=== PATIENT | female | born 1960 | race African-American/Black ===

== ENCOUNTER 2021-07-23 12:14 | Inpatient (IN) | payer OTHER ==
[2021-07-23 16:23] VITALS: BMI 37.4
[2021-07-23] MEDS ORDERED: ACETAMINOPHEN 325 MG TABLET (FP) PO PRN (23:30)
[2021-07-23] MEDS ORDERED: P-EPHED 60MG/TRIPROLIDI 2.5MG TABLET PO PRN (23:30)
[2021-07-23] MEDS ORDERED: guaiFENesin 200 MG/10 ML 10 ML UNIT-DOSE CUPS PO PRN (23:30)
[2021-07-23] MEDS ORDERED: MAG HYDROX/AL HYDROX/SIMETH 30 ML UNIT-DOSE CUP PO PRN (23:30)
[2021-07-23] MEDS ORDERED: LOPERAMIDE HCL 2 MG CAPSULE PO PRN (23:30)
[2021-07-23] MEDS ORDERED: MAGNESIUM CITRATE 300 ML BOTTLE PO PRN (23:30)
[2021-07-23] MEDS ORDERED: MELATONIN 5 MG TABLETS PO PRN (23:30)
[2021-07-23] MEDS ORDERED: MAGNESIUM HYDROX 2400MG/30ML ORAL SUSPENSION 30 ML CUP PO PRN (23:30)
[2021-07-23] MEDS ORDERED: cloNIDine HCL 0.1 MG TABLET PO ONE (23:32)
[2021-07-24] MEDS ORDERED: TUBERCULIN PPD 5 TU/0.1ML VIAL ID ONE (03:02)
[2021-07-24 08:41] LABS: CALCIUM 8.7 mg/dL (8.5-10.1)
[2021-07-24 08:42] LABS: BLOOD UREA NITROGEN 20.6 mg/dL (7-18)
[2021-07-24 08:44] LABS: CREATININE 1.4 mg/dL (0.55-1.3)
[2021-07-24 08:46] LABS: BILIRUBIN,TOTAL 0.2 mg/dL (0.2-1); TOT PROT 6.4 g/dl (6.4-8.2)
[2021-07-24 09:11] LABS: HEMATOCRIT 33.6 % (32.4-45.2); HEMOGLOBIN 11.3 GM/dL (10.7-15.3); MCH 28.7 pg (25.7-33.7); MCHC 33.7 g/dl (32.0-36.0); MEAN CELL VOLUME 85.3 fl (80-96); MEAN PLT VOLUME 8.9 fl (7.5-11.1); PLATELET COUNT 176 10^3/uL (134-434); RBC 3.94 M/mm3 (3.60-5.2); RDW 15.3 % (11.6-15.6); WHITE BLOOD COUNT 9.2 K/mm3 (4.0-10.0)
[2021-07-24 10:27] LABS: EPI CELLS 7 /uL (0-25.1); HYALINE CASTS 1 /uL (0-3.1); PH,URINE 6.5 (5.0-8.0); URINE APPEARANCE CLEAR; URINE BACTERIA 663 /uL (0-1359); URINE BILIRUBIN NEGATIVE (NEGATIVE); URINE COLOR YELLOW; URINE GLUCOSE (UA) NEGATIVE (NEGATIVE); URINE KETONE NEGATIVE (NEGATIVE); URINE LEUK ESTERASE 1+ (NEGATIVE); URINE NITRITE NEGATIVE (NEGATIVE); URINE PROTEIN 1+ (NEGATIVE); URINE RBC 72 /uL (0-23.9); URINE WBC 123 /uL (0-25.8)
[2021-07-24] MEDS: LISINOPRIL 20 MG TABLET PO SCH (10:45)
[2021-07-24] MEDS: ASPIRIN COATED 81 MG TABLET.EC PO SCH (10:45)
[2021-07-24] MEDS: PRENATAL VITAMINS W/ FOLIC ACID TABLET (FP) PO SCH (10:45)
[2021-07-24] MEDS: NIFEdipine E.R. 30 MG TABLET PO SCH (10:50)
[2021-07-24] MEDS ORDERED: ATORVASTATIN CA 40 MG TABLET (FP) ONE (21:47)
[2021-07-24] MEDS: ATORVASTATIN CA 80 MG TABLET (FP) PO SCH (21:48)
[2021-07-24] MEDS: THIAMINE HCL 100 MG TABLET (FP) PO SCH (21:48)
[2021-07-25] MEDS ORDERED: risperiDONE 1 MG TABLET PO SCH (10:00)
[2021-07-25] MEDS: NIFEdipine E.R. 30 MG TABLET PO SCH (10:28)
[2021-07-25] MEDS: ASPIRIN COATED 81 MG TABLET.EC PO SCH (10:28)
[2021-07-25] MEDS: LISINOPRIL 20 MG TABLET PO SCH (10:28)
[2021-07-25] MEDS: PRENATAL VITAMINS W/ FOLIC ACID TABLET (FP) PO SCH (10:28)
[2021-07-25] MEDS: DULoxetine HCL 30 MG CAPSULE.DR PO SCH (10:28)
[2021-07-25 12:04] LABS: HIV INTERPRETATION NEGATIVE (NEGATIVE)
[2021-07-25] MEDS ORDERED: ATORVASTATIN CA 40 MG TABLET (FP) ONE (19:25)
[2021-07-25] MEDS: ATORVASTATIN CA 80 MG TABLET (FP) PO SCH (21:11)
[2021-07-25] MEDS: THIAMINE HCL 100 MG TABLET (FP) PO SCH (21:11)
[2021-07-25] MEDS: MELATONIN 5 MG TABLETS PO PRN (21:11)
[2021-07-25] MEDS: risperiDONE 1 MG TABLET PO SCH (21:13)
[2021-07-26] MEDS ORDERED: hydrOXYzine PAMOATE 25 MG CAPSULE (FP) PO ONE (03:03)
[2021-07-26] MEDS: NIFEdipine E.R. 30 MG TABLET PO SCH ×2 (06:40→10:32)
[2021-07-26] MEDS: DULoxetine HCL 30 MG CAPSULE.DR PO SCH (10:30)
[2021-07-26] MEDS: PRENATAL VITAMINS W/ FOLIC ACID TABLET (FP) PO SCH (10:30)
[2021-07-26] MEDS: ASPIRIN COATED 81 MG TABLET.EC PO SCH (10:30)
[2021-07-26] MEDS: LISINOPRIL 20 MG TABLET PO SCH (10:32)
[2021-07-26] MEDS ORDERED: ATORVASTATIN CA 40 MG TABLET (FP) ONE (19:12)
[2021-07-26] MEDS: risperiDONE 1 MG TABLET PO SCH (21:14)
[2021-07-26] MEDS: ATORVASTATIN CA 80 MG TABLET (FP) PO SCH (21:14)
[2021-07-26] MEDS: THIAMINE HCL 100 MG TABLET (FP) PO SCH (21:14)
[2021-07-26] MEDS: MELATONIN 5 MG TABLETS PO PRN (22:14)
[2021-07-27] MEDS: PRENATAL VITAMINS W/ FOLIC ACID TABLET (FP) PO SCH (10:08)
[2021-07-27] MEDS: LISINOPRIL 20 MG TABLET PO SCH (10:09)
[2021-07-27] MEDS: DULoxetine HCL 30 MG CAPSULE.DR PO SCH (10:09)
[2021-07-27] MEDS: ASPIRIN COATED 81 MG TABLET.EC PO SCH (10:09)
[2021-07-27] MEDS: NIFEdipine E.R. 30 MG TABLET PO SCH (10:10)
[2021-07-27] MEDS ORDERED: ATORVASTATIN CA 40 MG TABLET (FP) ONE (19:15)
[2021-07-27] MEDS: risperiDONE 1 MG TABLET PO SCH (21:12)
[2021-07-27] MEDS: THIAMINE HCL 100 MG TABLET (FP) PO SCH (21:12)
[2021-07-27] MEDS: ATORVASTATIN CA 80 MG TABLET (FP) PO SCH (21:12)
[2021-07-27] MEDS: SUVOREXANT 10 MG TABLET PO PRN (21:14)
[2021-07-28] MEDS: LISINOPRIL 20 MG TABLET PO SCH (10:31)
[2021-07-28] MEDS: ASPIRIN COATED 81 MG TABLET.EC PO SCH (10:31)
[2021-07-28] MEDS: NIFEdipine E.R. 30 MG TABLET PO SCH (10:31)
[2021-07-28] MEDS: PRENATAL VITAMINS W/ FOLIC ACID TABLET (FP) PO SCH (10:31)
[2021-07-28] MEDS: DULoxetine HCL 30 MG CAPSULE.DR PO SCH (10:31)
[2021-07-28] MEDS ORDERED: ATORVASTATIN CA 40 MG TABLET (FP) ONE (19:56)
[2021-07-28] MEDS: THIAMINE HCL 100 MG TABLET (FP) PO SCH (21:13)
[2021-07-28] MEDS: SUVOREXANT 10 MG TABLET PO PRN (21:13)
[2021-07-28] MEDS: risperiDONE 1 MG TABLET PO SCH (21:13)
[2021-07-28] MEDS: ATORVASTATIN CA 80 MG TABLET (FP) PO SCH (21:13)
[2021-07-29] MEDS: PRENATAL VITAMINS W/ FOLIC ACID TABLET (FP) PO SCH (10:43)
[2021-07-29] MEDS: NIFEdipine E.R. 30 MG TABLET PO SCH (10:44)
[2021-07-29] MEDS: DULoxetine HCL 30 MG CAPSULE.DR PO SCH (10:46)
[2021-07-29] MEDS: LISINOPRIL 20 MG TABLET PO SCH (10:46)
[2021-07-29] MEDS: ASPIRIN COATED 81 MG TABLET.EC PO SCH (10:46)
[2021-07-29] MEDS ORDERED: ATORVASTATIN CA 40 MG TABLET (FP) ONE (20:36)
[2021-07-29] MEDS: THIAMINE HCL 100 MG TABLET (FP) PO SCH (21:23)
[2021-07-29] MEDS: ATORVASTATIN CA 80 MG TABLET (FP) PO SCH (21:23)
[2021-07-29] MEDS: risperiDONE 1 MG TABLET PO SCH (21:23)
[2021-07-29] MEDS: SUVOREXANT 10 MG TABLET PO PRN (21:26)
[2021-07-30] MEDS: DULoxetine HCL 30 MG CAPSULE.DR PO SCH (10:30)
[2021-07-30] MEDS: PRENATAL VITAMINS W/ FOLIC ACID TABLET (FP) PO SCH (10:30)
[2021-07-30] MEDS: NIFEdipine E.R. 30 MG TABLET PO SCH (10:31)
[2021-07-30] MEDS: ASPIRIN COATED 81 MG TABLET.EC PO SCH (10:31)
[2021-07-30] MEDS: LISINOPRIL 20 MG TABLET PO SCH (10:31)
[2021-07-30] MEDS ORDERED: ATORVASTATIN CA 40 MG TABLET (FP) ONE (19:49)
[2021-07-30] MEDS: THIAMINE HCL 100 MG TABLET (FP) PO SCH (21:16)
[2021-07-30] MEDS: risperiDONE 1 MG TABLET PO SCH (21:16)
[2021-07-30] MEDS: ATORVASTATIN CA 80 MG TABLET (FP) PO SCH (21:16)
[2021-07-30] MEDS: SUVOREXANT 10 MG TABLET PO PRN (21:16)
[2021-07-31] MEDS: NIFEdipine E.R. 30 MG TABLET PO SCH ×2 (06:20→11:05)
[2021-07-31] MEDS: PRENATAL VITAMINS W/ FOLIC ACID TABLET (FP) PO SCH (10:35)
[2021-07-31] MEDS: DULoxetine HCL 30 MG CAPSULE.DR PO SCH (10:36)
[2021-07-31] MEDS: ASPIRIN COATED 81 MG TABLET.EC PO SCH (10:36)
[2021-07-31] MEDS: LISINOPRIL 20 MG TABLET PO SCH (10:36)
[2021-07-31] MEDS ORDERED: ATORVASTATIN CA 40 MG TABLET (FP) ONE (19:54)
[2021-07-31] MEDS: risperiDONE 1 MG TABLET PO SCH (21:47)
[2021-07-31] MEDS: SUVOREXANT 10 MG TABLET PO PRN (21:47)
[2021-07-31] MEDS: THIAMINE HCL 100 MG TABLET (FP) PO SCH (21:47)
[2021-07-31] MEDS: ATORVASTATIN CA 80 MG TABLET (FP) PO SCH (21:48)
[2021-08-01] MEDS: NIFEdipine E.R. 30 MG TABLET PO SCH ×2 (06:25→10:29)
[2021-08-01] MEDS: LISINOPRIL 20 MG TABLET PO SCH (10:28)
[2021-08-01] MEDS: PRENATAL VITAMINS W/ FOLIC ACID TABLET (FP) PO SCH (10:28)
[2021-08-01] MEDS: DULoxetine HCL 30 MG CAPSULE.DR PO SCH (10:28)
[2021-08-01] MEDS: ASPIRIN COATED 81 MG TABLET.EC PO SCH (10:28)
[2021-08-01] MEDS ORDERED: ATORVASTATIN CA 40 MG TABLET (FP) ONE (20:42)
[2021-08-01] MEDS: SUVOREXANT 10 MG TABLET PO PRN (21:58)
[2021-08-01] MEDS: THIAMINE HCL 100 MG TABLET (FP) PO SCH (21:59)
[2021-08-01] MEDS: ATORVASTATIN CA 80 MG TABLET (FP) PO SCH (21:59)
[2021-08-01] MEDS: risperiDONE 1 MG TABLET PO SCH (21:59)
[2021-08-02] MEDS: NIFEdipine E.R. 30 MG TABLET PO SCH (10:49)
[2021-08-02] MEDS: PRENATAL VITAMINS W/ FOLIC ACID TABLET (FP) PO SCH (10:49)
[2021-08-02] MEDS: DULoxetine HCL 30 MG CAPSULE.DR PO SCH (10:49)
[2021-08-02] MEDS: LISINOPRIL 20 MG TABLET PO SCH (10:50)
[2021-08-02] MEDS: ASPIRIN COATED 81 MG TABLET.EC PO SCH (10:50)
[2021-08-02] MEDS ORDERED: ATORVASTATIN CA 40 MG TABLET (FP) ONE (19:28)
[2021-08-02] MEDS: risperiDONE 1 MG TABLET PO SCH (21:35)
[2021-08-02] MEDS: THIAMINE HCL 100 MG TABLET (FP) PO SCH (21:35)
[2021-08-02] MEDS: ATORVASTATIN CA 80 MG TABLET (FP) PO SCH (21:36)
[2021-08-02] MEDS: SUVOREXANT 10 MG TABLET PO PRN (21:37)
[2021-08-03] MEDS: DULoxetine HCL 30 MG CAPSULE.DR PO SCH (11:11)
[2021-08-03] MEDS: NIFEdipine E.R. 30 MG TABLET PO SCH (11:11)
[2021-08-03] MEDS: LISINOPRIL 20 MG TABLET PO SCH (11:11)
[2021-08-03] MEDS: PRENATAL VITAMINS W/ FOLIC ACID TABLET (FP) PO SCH (11:11)
[2021-08-03] MEDS: ASPIRIN COATED 81 MG TABLET.EC PO SCH (11:11)
[2021-08-03] MEDS ORDERED: ATORVASTATIN CA 40 MG TABLET (FP) ONE (19:57)
[2021-08-03] MEDS: THIAMINE HCL 100 MG TABLET (FP) PO SCH (22:03)
[2021-08-03] MEDS: ATORVASTATIN CA 80 MG TABLET (FP) PO SCH (22:04)
[2021-08-03] MEDS: risperiDONE 1 MG TABLET PO SCH (22:04)
[2021-08-03] MEDS: SUVOREXANT 10 MG TABLET PO PRN (22:05)
[2021-08-04] MEDS: LISINOPRIL 20 MG TABLET PO SCH (10:24)
[2021-08-04] MEDS: NIFEdipine E.R. 30 MG TABLET PO SCH (10:24)
[2021-08-04] MEDS: PRENATAL VITAMINS W/ FOLIC ACID TABLET (FP) PO SCH (10:24)
[2021-08-04] MEDS: DULoxetine HCL 30 MG CAPSULE.DR PO SCH (10:24)
[2021-08-04] MEDS: ASPIRIN COATED 81 MG TABLET.EC PO SCH (10:24)
[2021-08-04] MEDS ORDERED: ATORVASTATIN CA 40 MG TABLET (FP) ONE (20:34)
[2021-08-04] MEDS: risperiDONE 1 MG TABLET PO SCH (21:06)
[2021-08-04] MEDS: THIAMINE HCL 100 MG TABLET (FP) PO SCH (21:06)
[2021-08-04] MEDS: SUVOREXANT 10 MG TABLET PO PRN (21:08)
[2021-08-04] MEDS: ATORVASTATIN CA 80 MG TABLET (FP) PO SCH (21:09)
[2021-08-05] MEDS: DULoxetine HCL 30 MG CAPSULE.DR PO SCH (10:04)
[2021-08-05] MEDS: LISINOPRIL 20 MG TABLET PO SCH (10:04)
[2021-08-05] MEDS: PRENATAL VITAMINS W/ FOLIC ACID TABLET (FP) PO SCH (10:04)
[2021-08-05] MEDS: ASPIRIN COATED 81 MG TABLET.EC PO SCH (10:04)
[2021-08-05] MEDS: NIFEdipine E.R. 30 MG TABLET PO SCH (10:04)
[2021-08-05] MEDS: cloNIDine HCL 0.1 MG TABLET PO PRN (15:31)
[2021-08-05] MEDS: ATORVASTATIN CA 80 MG TABLET (FP) PO SCH (21:03)
[2021-08-05] MEDS: risperiDONE 1 MG TABLET PO SCH (21:03)
[2021-08-05] MEDS: THIAMINE HCL 100 MG TABLET (FP) PO SCH (21:03)
[2021-08-05] MEDS: SUVOREXANT 10 MG TABLET PO PRN (21:03)
[2021-08-06] MEDS: NIFEdipine E.R. 30 MG TABLET PO SCH (09:42)
[2021-08-06] MEDS: DULoxetine HCL 30 MG CAPSULE.DR PO SCH (09:42)
[2021-08-06] MEDS: ASPIRIN COATED 81 MG TABLET.EC PO SCH (09:42)
[2021-08-06] MEDS: LISINOPRIL 20 MG TABLET PO SCH (09:42)
[2021-08-06] MEDS: PRENATAL VITAMINS W/ FOLIC ACID TABLET (FP) PO SCH (09:43)
[2021-08-06] MEDS: cloNIDine HCL 0.1 MG TABLET PO PRN ×2 (15:24→22:05)
[2021-08-06] MEDS ORDERED: ATORVASTATIN CA 40 MG TABLET (FP) ONE (19:56)
[2021-08-06] MEDS: ATORVASTATIN CA 80 MG TABLET (FP) PO SCH (22:02)
[2021-08-06] MEDS: THIAMINE HCL 100 MG TABLET (FP) PO SCH (22:03)
[2021-08-06] MEDS: risperiDONE 1 MG TABLET PO SCH (22:03)
[2021-08-06] MEDS: SUVOREXANT 10 MG TABLET PO PRN (22:03)
[2021-08-07] MEDS: cloNIDine HCL 0.1 MG TABLET PO PRN (07:28)
[2021-08-07] MEDS: ASPIRIN COATED 81 MG TABLET.EC PO SCH (11:00)
[2021-08-07] MEDS: DULoxetine HCL 30 MG CAPSULE.DR PO SCH (11:00)
[2021-08-07] MEDS: NIFEdipine E.R. 30 MG TABLET PO SCH (11:00)
[2021-08-07] MEDS: PRENATAL VITAMINS W/ FOLIC ACID TABLET (FP) PO SCH (11:00)
[2021-08-07] MEDS: LISINOPRIL 20 MG TABLET PO SCH (11:00)
[2021-08-07] MEDS ORDERED: ATORVASTATIN CA 40 MG TABLET (FP) ONE (19:07)
[2021-08-07] MEDS: THIAMINE HCL 100 MG TABLET (FP) PO SCH (21:58)
[2021-08-07] MEDS: SUVOREXANT 10 MG TABLET PO PRN (21:58)
[2021-08-07] MEDS: ATORVASTATIN CA 80 MG TABLET (FP) PO SCH (21:58)
[2021-08-07] MEDS: risperiDONE 1 MG TABLET PO SCH (21:58)
[2021-08-08] MEDS: IBUPROFEN 400 MG TABLET (FP) PO PRN (07:07)
[2021-08-08] MEDS: PRENATAL VITAMINS W/ FOLIC ACID TABLET (FP) PO SCH (09:01)
[2021-08-08] MEDS: DULoxetine HCL 30 MG CAPSULE.DR PO SCH (09:01)
[2021-08-08] MEDS: NIFEdipine E.R. 30 MG TABLET PO SCH (09:01)
[2021-08-08] MEDS: LISINOPRIL 20 MG TABLET PO SCH (09:01)
[2021-08-08] MEDS: ASPIRIN COATED 81 MG TABLET.EC PO SCH (09:01)
[2021-08-08] MEDS ORDERED: ATORVASTATIN CA 40 MG TABLET (FP) ONE (20:25)
[2021-08-08] MEDS: ATORVASTATIN CA 80 MG TABLET (FP) PO SCH (23:03)
[2021-08-08] MEDS: THIAMINE HCL 100 MG TABLET (FP) PO SCH (23:03)
[2021-08-08] MEDS: risperiDONE 1 MG TABLET PO SCH (23:03)
[2021-08-08] MEDS: SUVOREXANT 10 MG TABLET PO PRN (23:05)
[2021-08-09] MEDS: DULoxetine HCL 30 MG CAPSULE.DR PO SCH (09:54)
[2021-08-09] MEDS: ASPIRIN COATED 81 MG TABLET.EC PO SCH (09:54)
[2021-08-09] MEDS: PRENATAL VITAMINS W/ FOLIC ACID TABLET (FP) PO SCH (09:54)
[2021-08-09] MEDS: LISINOPRIL 20 MG TABLET PO SCH (09:54)
[2021-08-09] MEDS: NIFEdipine E.R. 30 MG TABLET PO SCH (09:55)
[2021-08-09] MEDS ORDERED: ATORVASTATIN CA 40 MG TABLET (FP) ONE (19:42)
[2021-08-09] MEDS: risperiDONE 1 MG TABLET PO SCH (21:08)
[2021-08-09] MEDS: ATORVASTATIN CA 80 MG TABLET (FP) PO SCH (21:08)
[2021-08-09] MEDS: THIAMINE HCL 100 MG TABLET (FP) PO SCH (21:08)
[2021-08-09] MEDS: SUVOREXANT 10 MG TABLET PO PRN (21:10)
[2021-08-10] MEDS: LISINOPRIL 20 MG TABLET PO SCH (11:08)
[2021-08-10] MEDS: DULoxetine HCL 30 MG CAPSULE.DR PO SCH (11:08)
[2021-08-10] MEDS: PRENATAL VITAMINS W/ FOLIC ACID TABLET (FP) PO SCH (11:08)
[2021-08-10] MEDS: ASPIRIN COATED 81 MG TABLET.EC PO SCH (11:08)
[2021-08-10] MEDS: NIFEdipine E.R. 30 MG TABLET PO SCH (11:09)
[2021-08-10] MEDS: cloNIDine HCL 0.1 MG TABLET PO PRN (14:15)
[2021-08-10] MEDS ORDERED: ATORVASTATIN CA 40 MG TABLET (FP) ONE (20:24)
[2021-08-10] MEDS: risperiDONE 1 MG TABLET PO SCH (21:18)
[2021-08-10] MEDS: THIAMINE HCL 100 MG TABLET (FP) PO SCH (21:18)
[2021-08-10] MEDS: ATORVASTATIN CA 80 MG TABLET (FP) PO SCH (21:18)
[2021-08-10] MEDS: SUVOREXANT 10 MG TABLET PO PRN (21:20)
[2021-08-11] MEDS: LISINOPRIL 20 MG TABLET PO SCH (06:00)
[2021-08-11] MEDS: ASPIRIN COATED 81 MG TABLET.EC PO SCH (10:53)
[2021-08-11] MEDS: PRENATAL VITAMINS W/ FOLIC ACID TABLET (FP) PO SCH (10:53)
[2021-08-11] MEDS: DULoxetine HCL 30 MG CAPSULE.DR PO SCH (10:53)
[2021-08-11] MEDS: NIFEdipine E.R. 30 MG TABLET PO SCH (10:53)
[2021-08-11] MEDS ORDERED: ATORVASTATIN CA 40 MG TABLET (FP) ONE (19:54)
[2021-08-11] MEDS: THIAMINE HCL 100 MG TABLET (FP) PO SCH (21:12)
[2021-08-11] MEDS: ATORVASTATIN CA 80 MG TABLET (FP) PO SCH (21:12)
[2021-08-11] MEDS: SUVOREXANT 10 MG TABLET PO PRN (21:12)
[2021-08-11] MEDS: risperiDONE 1 MG TABLET PO SCH (21:12)
[2021-08-11] MEDS: cloNIDine HCL 0.1 MG TABLET PO PRN (22:30)
[2021-08-12] MEDS: LISINOPRIL 20 MG TABLET PO SCH (06:41)
[2021-08-12] MEDS: ASPIRIN COATED 81 MG TABLET.EC PO SCH (11:08)
[2021-08-12] MEDS: DULoxetine HCL 30 MG CAPSULE.DR PO SCH (11:09)
[2021-08-12] MEDS: PRENATAL VITAMINS W/ FOLIC ACID TABLET (FP) PO SCH (11:09)
[2021-08-12] MEDS: IBUPROFEN 400 MG TABLET (FP) PO PRN (11:09)
[2021-08-12] MEDS: NIFEdipine E.R. 30 MG TABLET PO SCH (11:10)
[2021-08-12] MEDS: risperiDONE 1 MG TABLET PO SCH (21:06)
[2021-08-12] MEDS: ATORVASTATIN CA 80 MG TABLET (FP) PO SCH (21:06)
[2021-08-12] MEDS: SUVOREXANT 10 MG TABLET PO PRN (21:06)
[2021-08-12] MEDS: THIAMINE HCL 100 MG TABLET (FP) PO SCH (21:06)
[2021-08-13] MEDS: LISINOPRIL 20 MG TABLET PO SCH (06:34)
[2021-08-13] MEDS: PRENATAL VITAMINS W/ FOLIC ACID TABLET (FP) PO SCH (11:03)
[2021-08-13] MEDS: DULoxetine HCL 30 MG CAPSULE.DR PO SCH (11:04)
[2021-08-13] MEDS: NIFEdipine E.R. 30 MG TABLET PO SCH (11:04)
[2021-08-13] MEDS: ASPIRIN COATED 81 MG TABLET.EC PO SCH (11:04)
[2021-08-13] MEDS ORDERED: ATORVASTATIN CA 40 MG TABLET (FP) ONE (19:48)
[2021-08-13] MEDS: SUVOREXANT 10 MG TABLET PO PRN (21:11)
[2021-08-13] MEDS: risperiDONE 1 MG TABLET PO SCH (21:11)
[2021-08-13] MEDS: THIAMINE HCL 100 MG TABLET (FP) PO SCH (21:11)
[2021-08-13] MEDS: ATORVASTATIN CA 80 MG TABLET (FP) PO SCH (21:11)
[2021-08-13] MEDS: cloNIDine HCL 0.1 MG TABLET PO PRN (21:12)
[2021-08-14] MEDS: LISINOPRIL 20 MG TABLET PO SCH (06:29)
[2021-08-14] MEDS: ASPIRIN COATED 81 MG TABLET.EC PO SCH (11:24)
[2021-08-14] MEDS: DULoxetine HCL 30 MG CAPSULE.DR PO SCH (11:24)
[2021-08-14] MEDS: NIFEdipine E.R. 30 MG TABLET PO SCH (11:25)
[2021-08-14] MEDS: PRENATAL VITAMINS W/ FOLIC ACID TABLET (FP) PO SCH (11:25)
[2021-08-14] MEDS ORDERED: ATORVASTATIN CA 40 MG TABLET (FP) ONE (20:22)
[2021-08-14] MEDS: SUVOREXANT 10 MG TABLET PO PRN (22:44)
[2021-08-14] MEDS: ATORVASTATIN CA 80 MG TABLET (FP) PO SCH (22:44)
[2021-08-14] MEDS: THIAMINE HCL 100 MG TABLET (FP) PO SCH (22:45)
[2021-08-14] MEDS: risperiDONE 1 MG TABLET PO SCH (22:45)
[2021-08-15] MEDS: LISINOPRIL 20 MG TABLET PO SCH (06:38)
[2021-08-15] MEDS: PRENATAL VITAMINS W/ FOLIC ACID TABLET (FP) PO SCH (11:17)
[2021-08-15] MEDS: ASPIRIN COATED 81 MG TABLET.EC PO SCH (11:17)
[2021-08-15] MEDS: NIFEdipine E.R. 30 MG TABLET PO SCH (11:17)
[2021-08-15] MEDS: DULoxetine HCL 30 MG CAPSULE.DR PO SCH (11:17)
[2021-08-15] MEDS ORDERED: ATORVASTATIN CA 40 MG TABLET (FP) ONE (20:10)
[2021-08-15] MEDS: ATORVASTATIN CA 80 MG TABLET (FP) PO SCH (22:10)
[2021-08-15] MEDS: THIAMINE HCL 100 MG TABLET (FP) PO SCH (22:10)
[2021-08-15] MEDS: SUVOREXANT 10 MG TABLET PO PRN (22:10)
[2021-08-15] MEDS: risperiDONE 1 MG TABLET PO SCH (22:10)
[2021-08-16] MEDS: IBUPROFEN 400 MG TABLET (FP) PO PRN (03:51)
[2021-08-16] MEDS: LISINOPRIL 20 MG TABLET PO SCH (06:51)
[2021-08-16] MEDS: DULoxetine HCL 30 MG CAPSULE.DR PO SCH (10:22)
[2021-08-16] MEDS: ASPIRIN COATED 81 MG TABLET.EC PO SCH (10:22)
[2021-08-16] MEDS: PRENATAL VITAMINS W/ FOLIC ACID TABLET (FP) PO SCH (10:23)
[2021-08-16] MEDS: NIFEdipine E.R. 30 MG TABLET PO SCH (10:23)
[2021-08-16] MEDS ORDERED: ATORVASTATIN CA 40 MG TABLET (FP) ONE (19:44)
[2021-08-16] MEDS: THIAMINE HCL 100 MG TABLET (FP) PO SCH (22:01)
[2021-08-16] MEDS: SUVOREXANT 10 MG TABLET PO PRN (22:02)
[2021-08-16] MEDS: ATORVASTATIN CA 80 MG TABLET (FP) PO SCH (22:02)
[2021-08-16] MEDS: risperiDONE 1 MG TABLET PO SCH (22:02)
[2021-08-17] MEDS: LISINOPRIL 20 MG TABLET PO SCH (06:08)
[2021-08-17] MEDS: PRENATAL VITAMINS W/ FOLIC ACID TABLET (FP) PO SCH (10:54)
[2021-08-17] MEDS: ASPIRIN COATED 81 MG TABLET.EC PO SCH (10:54)
[2021-08-17] MEDS: DULoxetine HCL 30 MG CAPSULE.DR PO SCH (10:54)
[2021-08-17] MEDS: NIFEdipine E.R. 30 MG TABLET PO SCH (10:55)
[2021-08-17] MEDS ORDERED: ATORVASTATIN CA 40 MG TABLET (FP) ONE (20:58)
[2021-08-17] MEDS: ATORVASTATIN CA 80 MG TABLET (FP) PO SCH (22:10)
[2021-08-17] MEDS: risperiDONE 1 MG TABLET PO SCH (22:10)
[2021-08-17] MEDS: THIAMINE HCL 100 MG TABLET (FP) PO SCH (22:10)
[2021-08-17] MEDS: cloNIDine HCL 0.1 MG TABLET PO PRN (22:11)
[2021-08-17] MEDS: SUVOREXANT 10 MG TABLET PO PRN (22:12)
[2021-08-18] MEDS: IBUPROFEN 400 MG TABLET (FP) PO PRN (04:22)
[2021-08-18] MEDS: LISINOPRIL 20 MG TABLET PO SCH (06:49)
[2021-08-18] MEDS: PRENATAL VITAMINS W/ FOLIC ACID TABLET (FP) PO SCH (11:00)
[2021-08-18] MEDS: ASPIRIN COATED 81 MG TABLET.EC PO SCH (11:00)
[2021-08-18] MEDS: NIFEdipine E.R. 30 MG TABLET PO SCH (11:00)
[2021-08-18] MEDS: DULoxetine HCL 30 MG CAPSULE.DR PO SCH (11:00)
[2021-08-18] MEDS: THIAMINE HCL 100 MG TABLET (FP) PO SCH (21:13)
[2021-08-18] MEDS: risperiDONE 1 MG TABLET PO SCH (21:13)
[2021-08-18] MEDS: SUVOREXANT 10 MG TABLET PO PRN (21:13)
[2021-08-18] MEDS: ATORVASTATIN CA 80 MG TABLET (FP) PO SCH (21:13)
[2021-08-18] MEDS: cloNIDine HCL 0.1 MG TABLET PO PRN (21:15)
[2021-08-19] MEDS: IBUPROFEN 400 MG TABLET (FP) PO PRN (05:36)
[2021-08-19] MEDS: LISINOPRIL 20 MG TABLET PO SCH (06:27)
[2021-08-19] MEDS: cloNIDine HCL 0.1 MG TABLET PO PRN (07:59)
[2021-08-19] MEDS: DULoxetine HCL 30 MG CAPSULE.DR PO SCH (10:47)
[2021-08-19] MEDS: ASPIRIN COATED 81 MG TABLET.EC PO SCH (10:47)
[2021-08-19] MEDS: NIFEdipine E.R. 30 MG TABLET PO SCH (10:47)
[2021-08-19] MEDS: PRENATAL VITAMINS W/ FOLIC ACID TABLET (FP) PO SCH (10:47)
[2021-08-19] MEDS: SUVOREXANT 10 MG TABLET PO PRN (21:12)
[2021-08-19] MEDS: ATORVASTATIN CA 80 MG TABLET (FP) PO SCH (21:12)
[2021-08-19] MEDS: risperiDONE 1 MG TABLET PO SCH (21:12)
[2021-08-19] MEDS: THIAMINE HCL 100 MG TABLET (FP) PO SCH (21:12)
[2021-08-20] MEDS: IBUPROFEN 400 MG TABLET (FP) PO PRN (05:58)
[2021-08-20] MEDS: LISINOPRIL 20 MG TABLET PO SCH (06:00)
[2021-08-20 07:12] VITALS: BP 143/96; PULSE 84; TEMP 97.7
[2021-08-20] MEDS: DULoxetine HCL 30 MG CAPSULE.DR PO SCH (09:40)
[2021-08-20] MEDS: PRENATAL VITAMINS W/ FOLIC ACID TABLET (FP) PO SCH (09:41)
[2021-08-20] MEDS: ASPIRIN COATED 81 MG TABLET.EC PO SCH (09:41)
[2021-08-20] MEDS: NIFEdipine E.R. 30 MG TABLET PO SCH (09:41)
== END 2021-08-20 10:00 | disposition home or self-care (01) | DRG 772 ==
LOC: YASAS 12:14 → Y5N 16:44
PROVIDERS: ADMIT Allergy & Immunology; ATTEND Psychiatry & Neurology Pain Medicine
PROC: HZ42ZZZ Group Counseling for Substance Abuse Treatment, Cognitive-Behavioral (ICD-10-PCS; principal; 2021-07-23)
DX: F14.20 Cocaine dependence, uncomplicated (principal); F10.10 Alcohol abuse, uncomplicated; F17.210 Nicotine dependence, cigarettes, uncomplicated; F19.24 Other psychoactive substance dependence with psychoactive substance-induced mood disorder; F32.A Depression, unspecified; G47.00 Insomnia, unspecified; I10 Essential (primary) hypertension; E66.9 Obesity, unspecified; Z68.37 Body mass index [BMI] 37.0-37.9, adult; I69.854 Hemiplegia and hemiparesis following other cerebrovascular disease affecting left non-dominant side; M17.0 Bilateral primary osteoarthritis of knee; M70.72 Other bursitis of hip, left hip; M70.71 Other bursitis of hip, right hip; Z99.89 Dependence on other enabling machines and devices; Z59.00 Homelessness unspecified
CPT/HCPCS: 36415; 80053; 81003; 85027; 86780; 87086; 87389; 93005; 93010; C9803-CS; J0735; J2794; U0003; U0005